=== PATIENT | female | born 1975 | race African-American/Black ===

== ENCOUNTER → 2023-04-28 15:41 | Outpatient (CLI) | payer OTHER, SELFPAY ==
--- NOTE | ~2023-04-28 | MM_ITS ---
EXAMINATION: MM screening sisi BI w lee HISTORY: Screening TECHNIQUE: Craniocaudal and mediolateral oblique 3-D tomosynthesis images were obtained and synthetic 2-D images were generated. CAD analysis was submitted and interpreted. COMPARISON: No prior mammogram is available for comparison at this institution. BREAST PARENCHYMAL COMPOSITION: There are scattered areas of fibroglandular density. FINDINGS: There are asymmetries in the subareolar location of the right breast. There are no suspicio us masses, calcifications or architectural distortion in the left breast to suggest malignancy. IMPRESSION: 1. Right breast asymmetries. 2. Additional mammographic views and possible breast ultrasound are recommended. BI-RADS Category 0: Incomplete: Needs additional imaging evaluation. Reviewed, dictated and finalized at location A. IMPRESSION: 1. Right breast asymmetries. 2. Additional mammographic views and possible breast ultrasound are recommended . BI-RADS Category 0: Incomplete: Needs additional imaging evaluation.
== END ==
PROVIDERS: PCP Student in an Organized Health Care Education/Training Program; Visit Provider Student in an Organized Health Care Education/Training Program
DX: Z12.31 Encounter for screening mammogram for malignant neoplasm of breast (principal); R92.8 Other abnormal and inconclusive findings on diagnostic imaging of breast
CPT/HCPCS: 77063; 77067

== ENCOUNTER → 2023-05-22 07:52 | Outpatient (CLI) | payer OTHER, SELFPAY ==
--- NOTE | ~2023-05-22 | MMUS_ITS ---
EXAMINATION: MM diagnostic sisi RT w lee, US breast RT limited HISTORY: Right breast mammographic asymmetry on 04/28/2023 screening mammogram TECHNIQUE: Additional 3-D tomosynthesis images of the right breast were performed and synthetic 2-D i mages were generated. CAD analysis was submitted and interpreted. High resolution upper inner and low er inner quadrant right breast ultrasound was performed. COMPARISON: 04/28/2023 bilateral screening mammogram FINDINGS: MAMMOGRAPHIC FINDINGS: No suspicious mass or architectural distortion, malignant calcification, skin thickening or retractio n is detected. ULTRASOUND: No suspicious mass or shadowing, cyst or other significant sonographic abnormalities identified in th e inner half of the right breast. IMPRESSION: 1. No mammographic evidence of malignancy 2. Routine annual mammographic screening is recommended BI-RADS Category 1: Negative Reviewed, dictated and finalized at location A. IMPRESSION: 1. No mammographic evidence of malignancy 2. Routine annual mammographic screening is recommended BI-RADS Category 1: Negative
== END ==
PROVIDERS: PCP Student in an Organized Health Care Education/Training Program; Visit Provider Student in an Organized Health Care Education/Training Program
DX: R92.8 Other abnormal and inconclusive findings on diagnostic imaging of breast (principal)
CPT/HCPCS: 76642; 77061; 77065; G0279

== ENCOUNTER 2023-08-08 14:12 | Emergency (ER) | payer OTHER, SELFPAY ==
--- NOTE | 2023-08-08 14:34 | ED.ABDPAIN ---
HPI - Abdominal Pain General Chief Complaint: Abdominal Pain Stated Complaint: Abdominal Pain Time Seen by Provider: 08/08/23 15:06 Source: patient and RN notes reviewed Mode of arrival: ambulatory Limitations: no limitations History of Present Illness HPI narrative: 48-year-old female presents concern for left lower quadrant abdominal pain for 3 days. She reports she has had the pain before and was treated for diverticulitis at Urgent Care, she did not have confirmation of diverticulitis diagnosis. She reports the antibiotics did make her pain go away at that time. She reports this pain is worse when she is lying down particularly on her left side. Reports when she is lying down is a 10/10. Reports right now is a 4/chin. She denies constipation or diarrhea, reports she had a normal bowel movement this morning. She reports decreased appetite and mild nausea without vomiting. She denies back pain, dysuria, frequency, urgency. MD elicited complaint: abdominal pain Related Data Home Medications Medication Instructions Recorded Confirmed topiramate 25 mg tablet 25 mg PO DIRECTED 08/08/23 08/08/23 Allergies Allergy/AdvReac Type Severity Reaction Status Date / Time acetaminophen [From Vicodin] Allergy Severe swelling Verified 08/08/23 14:54 hydrocodone [From Vicodin] Allergy Severe swelling Verified 08/08/23 14:54 shrimp Allergy Severe Anaphylaxis Verified 08/08/23 14:54 strawberry Allergy Severe Anaphylaxis Verified 08/08/23 14:54 ciprofloxacin [From Cipro] Allergy Intermediate Rash Verified 08/08/23 14:54 Review of Systems Review of Systems: CONSTITUTIONAL: Denies malaise, chills, sweats, or fever. ENT: Denies rhinorrhea, congestion, sinus pain, otalgia or sore throat. CARDIOVASCULAR: Denies chest pain, palpitations, or edema. RESPIRATORY: Denies cough or dyspnea. GASTROINTESTINAL: Reports left lower quadrant abdominal pain, nausea. Denies vomiting, diarrhea, bloody, or mucous stools. GENITOURINARY: Denies dysuria or hematuria. MUSCULOSKELETAL: Denies myalgia. NEUROLOGIC: Denies headache. 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 Screening for breast cancer Surgical History Surgical History H/O: hysterectomy Family History Family History Mother Acute myocardial infarction Cerebrovascular accident Grandparent Malignant tumor of pharynx Malignant tumor of stomach Social History Social History Smoking status: Never smoker Alcohol intake: current Alcohol use details: occasional Substance use: never Substance use type: does not use Living arrangements: with family Occupation/Education: occupation Gender identity (if verbalized by the patient): Female Comments At time of signature, agree with nursing past medical, surgical, social and family history. There is no relevant family history pertinent to the presenting complaint Exam Narrative: GENERAL: Well-appearing, well-nourished, and in no acute distress. HEAD: Normocephalic, atraumatic. EYES: PERRLA, conjunctivae clear, and EOMI. ENT: Nares clear, turbinates pink, no rhinorrhea or epistaxis. Mucous membranes moist. Oropharynx without edema, erythema, or lesions. Tonsils not enlarged and without exudate. NECK: Supple. No lymphadenopathy CHEST: Speaks in full sentences. No respiratory distress. HEART: Regular rate and rhythm. ABDOMEN: Soft, obese, nondistended. Left lower quadrant tenderness. No guarding, rebound tenderness, or rigidity. No pulsatile masses. Bowel sounds present in all four quadrants. No organomegaly. No periumbilical tenderness. No Supra public tenderness o
[2023-08-08 14:35] VITALS: BP 106/61; PULSE 74; RESP 18; TEMP 36.6; O2SAT 99
== END 2023-08-08 15:21 | disposition home or self-care (01) ==
PROVIDERS: Emergency Provider Nurse Practitioner; PCP Family Medicine
DX: R10.32 Left lower quadrant pain (principal)
CPT/HCPCS: 81003; 99213; G0463

== ENCOUNTER 2023-08-24 15:57 | Outpatient (CLI) | payer OTHER, SELFPAY ==
--- NOTE | ~2023-08-24 | CT_ITS ---
EXAMINATION: CT abdomen pelvis w con DATE: 08/24/2023 16:21 INDICATION: Left lower quadrant abdominal pain TECHNIQUE: Computed tomography (CT) of the abdomen and pelvis was performed with 100 mL Omnipaque-350 intravenous contrast. Automated exposure control and iterative reconstruction technique were employe d. The dose-length product was 1355.01 mGy-cm. COMPARISON: None FINDINGS: Lung bases are clear. Heart size is normal. No pericardial or pleural effusion. Diffuse hepatic steat osis. Gallstone at the neck of the nondilated gallbladder which is without evident wall thickening or pericholecystic inflammation presenting to suggest acute cholecystitis. Spleen, pancreas, bilateral adrenal glands and kidneys are normal. There is moderate colonic diverticulosis with a sigmoid predom inance. There is negligible inflammatory stranding along a diverticulum at the distal descending colo n suspicious for mild diverticulitis. Small bowel and appendix are normal. Small urachal remnant eric g the anterior aspect of the otherwise normal bladder. The uterus is not identified and has likely be en surgically resected. No free intraperitoneal gas or fluid. No pathologically enlarged abdominal or pelvic lymphadenopathy. IMPRESSION: 1. Likely mild radiographically uncomplicated diverticulitis along the distal descending colon. 2. Cholelithiasis. Reviewed, dictated and finalized at location A. [facility] IMPRESSION: 1. Likely mild radiographically uncomplicated diverticulitis along the distal d escending colon. 2. Cholelithiasis.
[2023-08-24 16:59] LABS: Basophils Absolute Auto 0.1 K/mm3 (0.0-0.1); Basophils Percent Auto 1.1 % (0.2-1.2); Eosinophils Absolute Auto 0.1 K/mm3 (0-0.3); Eosinophils Percent Auto 1.4 % (0-4.4); Hematocrit 42.3 % (37.0-47.0); Immature Granulocyte Absolute 0.01 K/mm3 (0.00-0.031); Immature Granulocyte Percent A 0.2 % (0-0.5); Lymphocytes Percent Auto 52.1 % (18.3-44.2); Mean Corpuscular HGB Conc 33.1 g/dl (32-36); Mean Corpuscular Hemoglobin 29.6 pg (26-34); Mean Corpuscular Volume 89.4 fl (80-100); Mean Platelet Volume 10.3 fl (7.4-10.4); Monocytes Absolute Auto 0.4 K/mm3 (0.1-0.6); Monocytes Percent Auto 6.5 % (2.6-8.5); Neutrophils Absolute Auto 2.5 K/mm3 (1.3-6.7); Neutrophils Percent Auto 38.7 % (45.5-73.1); Platelet Count Result 344 k/mm3 (150-375); Red Blood Count 4.73 M/mm3 (4.2-5.4); Red Cell Distribution Width 13.1 % (11.5-14.5); White Blood Count 6.3 K/mm3 (4.5-10.0)
[2023-08-24 17:02] LABS: Appearance Urine Clear (Clear); Bilirubin Urine Negative (Negative); Blood Urine Negative (Negative); Color Urine Yellow (Yellow); Glucose Urine UA Negative (Negative); Ketones Urine Negative (Negative); Leukocyte Esterase Ur Negative LEU/UL (Negative); Nitrate Urine Negative (Negative); Protein Urine Negative (Negative); Urobilinogen Urine 0.2 mg/dL (<2.0); pH Urine 5.5 (5.0-9.0)
[2023-08-24 17:07] LABS: Specific Grav Ur 1.042 (1.001-1.035)
[2023-08-24 17:08] LABS: Add Urine Microscopic? NO
[2023-08-24 17:12] LABS: Alanine Aminotransferase 52 U/L (6-35); Albumin Level 4.4 g/dL (3.5-5.1); Alkaline Phosphatase 86 U/L (38-126); Anion Gap 7 mmol/L (8-16); Aspartate Amino Transferase 22 U/L (14-36); Bilirubin,Total 0.9 mg/dL (0.2-1.3); Blood Urea Nitrogen 9 mg/dL (7-17); Calcium 9.2 mg/dL (8.4-10.2); Carbon Dioxide 25 mmol/L (22-30); Chloride 104 mmol/L (98-107); Estimated Glomerular Filt Rate > 60; Glucose 82 mg/dL (65-110); Potassium 3.9 mmol/L (3.4-5.0); Sodium 136 mmol/L (137-145)
== END 2023-08-24 15:58 | disposition home or self-care (01) ==
PROVIDERS: PCP Family Medicine; Visit Provider Family Medicine
DX: K80.20 Calculus of gallbladder without cholecystitis without obstruction (principal); R10.32 Left lower quadrant pain
CPT/HCPCS: 36415; 74177; 80053; 81003; 85025; Q9967

== ENCOUNTER 2023-11-16 00:16 | Day surgery (SDC) | payer OTHER, SELFPAY ==
[2023-10-27 13:19] VITALS: BMI 40.3
--- NOTE | 2023-11-13 12:51 | SUR.PREOP ---
Patient called regarding upcoming procedure. Reviewed preop instructions, appointment times, and procedure prep.
[2023-11-16 10:22] VITALS: BP 134/93; PULSE 79; RESP 18; TEMP 36.3; O2SAT 100
[2023-11-16] MEDS: LACTATED RINGERS 1,000 ML 150 ML IV CONT (10:31)
--- NOTE | 2023-11-16 10:53 | PM.HPGS ---
History of Present Illness History of Present Illness Consent: Risks, benefits, and alternatives have been discussed and questions answered. Patient agrees to proceed with procedure. Chief complaint: Diverticulitis of large intestine Narrative: Zaki Gonzalez is a 48 year old female here for first colonoscopy, had colonoscopy treated medically Review of Systems Constitutional: Constitutional: Denies headache(s) and Denies weakness Eyes: Eyes: Denies blurry vision ENT: Reports Normal hearing present, Denies headache(s) and Denies neck pain Cardiovascular: Cardiovascular: Denies chest pain and Denies dyspnea Respiratory: Respiratory: Denies dyspnea Gastrointestinal: Gastrointestinal: Reports no additional gastrointestinal complaints Genitourinary: Genitourinary: Denies dysuria Musculoskeletal: Musculoskeletal: Denies neck pain Integumentary/Breasts: Skin/Breast: Denies dry skin Neurologic: Reports Normal hearing present, Denies headache(s) and Denies weakness Psychiatric: Psychiatric: Denies anxiety Endocrine: Endocrine: Denies change in body appearance Hematologic/Lymphatic: Hematologic/Lymphatic: Denies easy bleeding Allergic/Immunologic: Allergic/Immunologic: Denies urticaria PMFSH Past Medical History Medical History (Updated 09/15/23 @ 09:54 by Darya Ferrell, YANDY) 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 Diverticulitis of descending colon Obesity Screening for breast cancer Surgical History Surgical History H/O: hysterectomy Family History Family History Mother Acute myocardial infarction Cerebrovascular accident Grandparent Malignant tumor of pharynx Malignant tumor of stomach Social History Social History Smoking status: Never smoker Alcohol intake: current Alcohol use details: occasional wine Substance use: never Substance use type: does not use Living arrangements: with friend(s) Additional living arrangements comments: lives with fiance Occupation/Education: occupation Gender identity (if verbalized by the patient): Female Spiritual care concerns: No Meds Home Medications and Allergies Home Medications Medication Instructions Recorded Confirmed Type topiramate 25 mg tablet 25 mg PO DIRECTED 08/08/23 10/27/23 History cyclobenzaprine 10 mg tablet 10 mg PO .prn 09/15/23 10/27/23 History levalbuterol HCl 0.63 mg/3 mL 0.63 mg inhalation Q6H PRN 09/15/23 10/27/23 History solution for nebulization Respiratory Distress Allergies Allergy/AdvReac Type Severity Reaction Status Date / Time acetaminophen [From Vicodin] Allergy Severe swelling Verified 11/16/23 10:21 hydrocodone [From Vicodin] Allergy Severe swelling Verified 11/16/23 10:21 shrimp Allergy Severe Anaphylaxis Verified 11/16/23 10:21 strawberry Allergy Severe Anaphylaxis Verified 11/16/23 10:21 ciprofloxacin [From Cipro] Allergy Intermediate Rash Verified 11/16/23 10:21 Vital Signs Vital Signs - 24 hr 11/16/23 10:22 Temperature 97.4 F L Pulse Rate 79 Respiratory Rate 18 Blood Pressure 134/93 H Pulse Oximetry 100 Oxygen Delivery Room Air Exam Const: General: comfortable and no acute distress HENMT: Face/Nose/Sinus: Normal nares present Eyes: General: appearance normal, both eyes and all related structures Neck: Neck: no JVD Resp: Auscultation: clear to auscultation bilaterally Cardio: Rate: regular rate Rhythm: regular rhythm GI: Inspection: non-distended GI Palp: Yes Soft to palpation Skin: General skin exam: normal color Neuro: General: gait normal Speech: normal speech Extrem: General: normal to inspection Psych: Mental Status: mental status grossly normal Assessment and Plan Assessment and plan (1) Diverticulitis of descending colon:
--- NOTE | 2023-11-16 10:58 | WPDANESEPPF ---
Anes - Initial Pre Proc Eval Procedure: Operation Date: 11/16/23 11:30 Proposed Procedures p Colonoscopy - Abdon Stokes MD Date/Time: 11/16/23 10:58 Surgeon: Abdon Stokes MD Pre Op Diagnosis: Diverticulitis of large intestine Patient Data Age: 48 Gender: F Height: 1.57 m Weight: 103 kg Last Vital Signs Temp 97.4 F L 11/16/23 10:22 Pulse 79 11/16/23 10:22 Resp 18 11/16/23 10:22 BP 134/93 H 11/16/23 10:22 Pulse Ox 100 11/16/23 10:22 O2 Del Method Room Air 11/16/23 10:22 Allergies Allergy/AdvReac Type Severity Reaction Status Date / Time acetaminophen [From Vicodin] Allergy Severe swelling Verified 11/16/23 10:21 hydrocodone [From Vicodin] Allergy Severe swelling Verified 11/16/23 10:21 shrimp Allergy Severe Anaphylaxis Verified 11/16/23 10:21 strawberry Allergy Severe Anaphylaxis Verified 11/16/23 10:21 ciprofloxacin [From Cipro] Allergy Intermediate Rash Verified 11/16/23 10:21 Home Medications Medication Instructions Recorded Confirmed Type topiramate 25 mg tablet 25 mg PO DIRECTED 08/08/23 10/27/23 History cyclobenzaprine 10 mg tablet 10 mg PO .prn 09/15/23 10/27/23 History levalbuterol HCl 0.63 mg/3 mL 0.63 mg inhalation Q6H PRN 09/15/23 10/27/23 History solution for nebulization Respiratory Distress Patient hx anesthesia problems: none Family hx anesthesia problems: none Results Review: All pre-operative results and documents have been reviewed as part of the pre-operative evaluation. 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 Diverticulitis of descending colon Obesity Screening for breast cancer Surgical History Surgical History H/O: hysterectomy Family History Family History Mother Acute myocardial infarction Cerebrovascular accident Grandparent Malignant tumor of pharynx Malignant tumor of stomach Social History Social History Smoking status: Never smoker Alcohol intake: current Alcohol use details: occasional wine Substance use: never Substance use type: does not use Living arrangements: with friend(s) Additional living arrangements comments: lives with fiance Occupation/Education: occupation Gender identity (if verbalized by the patient): Female Spiritual care concerns: No Anes - Eval Final PreProcedure Day of Procedure 11/16/23 10:58 Patient weight: morbidly obese Heart: regular rate and rhythm Lungs: clear to auscultation Airway: Mallampati scale class II Neurological: alert and oriented Last oral intake: >/= 8 hours ASA classification: III Emergent: no Anesthetic plan: proceed Anesthesia type and monitoring: general GIVS and standard monitoring Results Review: All pre-operative results and documents have been reviewed as part of the pre-operative evaluation. Informed Consent: The patient's anesthetic plan and its attendant risks and benefits were discussed with the patient/family/POA. Questions were solicited and answers provided to the satisfaction of the patient/family/POA.
[2023-11-16 11:17] VITALS: BP 100/54; PULSE 71; RESP 17; O2SAT 99
[2023-11-16 11:27] VITALS: BP 113/71; PULSE 64; RESP 13; O2SAT 100
[2023-11-16 11:37] VITALS: BP 122/73; PULSE 65; RESP 14; O2SAT 99
== END 2023-11-16 11:46 | disposition home or self-care (01) ==
PROVIDERS: PCP Family Medicine; Visit Provider Internal Medicine Gastroenterology
PROC: 0DJD8ZZ Inspection of Lower Intestinal Tract, Via Natural or Artificial Opening Endoscopic (ICD-10-PCS; CPT 45378; principal; 2023-11-16 11:30)
DX: K57.30 Diverticulosis of large intestine without perforation or abscess without bleeding (principal); E66.01 Morbid (severe) obesity due to excess calories; Z68.41 Body mass index [BMI] 40.0-44.9, adult; Z79.51 Long term (current) use of inhaled steroids; Z98.890 Other specified postprocedural states; Z82.49 Family history of ischemic heart disease and other diseases of the circulatory system; Z80.0 Family history of malignant neoplasm of digestive organs
CPT/HCPCS: 45378; J2704; J7120

== ENCOUNTER 2024-06-08 09:48 | Outpatient (CLI) | payer OTHER, SELFPAY ==
--- NOTE | ~2024-06-08 | MMUS_ITS ---
EXAMINATION: US breast RT complete, MM diagnostic sisi BI w lee HISTORY: Probable right breast abnormality by clinical breast examination. TECHNIQUE: Additional 3-D tomosynthesis images of the breasts were performed and synthetic 2-D images were generated. CAD analysis was submitted and interpreted. High resolution complete right breast ul trasound was performed. COMPARISON: Comparison to multiple prior studies sequentially, with oldest reviewed study dated 04/28. BREAST PARENCHYMAL COMPOSITION: Not dense: There are scattered areas of fibroglandular density. FINDINGS: MAMMOGRAPHIC FINDINGS: There are no suspicious masses, calcifications or architectural distortion in either breast to sugges t malignancy. ULTRASOUND: Complete US of all 4 quadrants of the right breast and retroareolar region was reviewed. Normal heter ogeneous echotexture without focal solid or cystic mass. IMPRESSION: 1. No evidence for malignancy in either breast. 2. Routine yearly screening mammogram and regular clinical breast examination are recommended. BI-RADS Category 1: Negative Reviewed, dictated and finalized at location B. IMPRESSION: 1. No evidence for malignancy in either breast. 2. Routine yearly screening mammogram and regular clinical breast examination a re recommended. BI-RADS Category 1: Negative
== END 2024-06-08 09:49 | disposition home or self-care (01) ==
LOC: MICIMG 09:50
PROVIDERS: PCP Family Medicine; Visit Provider Obstetrics & Gynecology
DX: N64.89 Other specified disorders of breast (principal)
CPT/HCPCS: 76641; 77062; 77066; G0279